=== PATIENT | female | born 1970 | race American Indian/Alaskan Native ===

== ENCOUNTER 2018-08-03 01:56 | Emergency (ER) | payer MEDICAID, OTHER ==
[2018-08-03] MEDS ORDERED: TYLENOL PO ONE (04:29)
[2018-08-03] MEDS ORDERED: IBUPROFEN PO ONE (04:30)
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
[2018-08-03 06:27] VITALS: BP 150/90
== END 2018-08-03 06:27 | disposition home or self-care (01) ==
LOC: ED 01:56
DX: S76.012A Strain of muscle, fascia and tendon of left hip, initial encounter (principal); M54.2 Cervicalgia; M62.830 Muscle spasm of back; V89.2XXA Person injured in unspecified motor-vehicle accident, traffic, initial encounter; Y93.89 Activity, other specified; Y92.488 Other paved roadways as the place of occurrence of the external cause; Y99.8 Other external cause status
CPT/HCPCS: 72040; 72100; 99283